=== PATIENT | male | born 1990 | race African-American/Black ===

== ENCOUNTER → 2018-06-17 | Day surgery (SDC) | payer OTHER ==
[~2018-06-17] VITALS: Ht 175.3 cm; Wt 72.6 kg
--- NOTE | 2018-06-17 07:34 | Operative Report ---
See Addendum Operative/Inv Procedure Report Surgery Date: 06/17/18 Name of Procedure: Right ACL reconstruction using hamstring autograft, partial lateral meniscectomy Pre-Operative Diagnosis: Right ACL tear, lateral meniscus tear Post-Operative Diagnosis: Right ACL tear, lateral meniscus tear Estimated Blood Loss: scant Surgeon/E Learning Designer: Obdulio Galaviz MD Anesthesia: laryngeal mask airway, block Complications: None Condition: Stable to PACU Operative Indication: This is a 27-year-old male who injured his right knee playing basketball. MRI showed an ACL tear. He has had recurrent instability. Risks and benefits of the procedure were discussed with the patient at length. Risks include but are not limited to nerve damage, muscle damage, infection, blood loss, blood clots, pulmonary embolus, and even . The patient agreed to the above risks and elected to proceed with surgery. Operative/Procedure Note Note: The patient was placed supine on the operating room table. A tourniquet was applied. The lower extremity prepped and draped in normal sterile fashion. A timeout was performed before the incision. The site marking was visualized before incision. After the leg was prepped and draped, an Esmarch was used to exsanguinate the extremity. The tourniquet was inflated. An incision was made medial and distal to the tibial tubercle. Soft tissue dissection was performed down to the sartorius fascia. The sartorius fascia was incised in line with the gracilis and semi-tendinosis tendons. The gracilis tendon was isolated and a vessel loop was placed deep to this. Adhesions were released with a scissor. A tendon stripper was then passed up and the gracilis was delivered from the wound. It was then amputated at its insertion point. The semi-tendinosis tendon was also removed in similar fashion. The hamstring tendons were then sized and prepared on the back table. Muscular tissue was debrided with a metal ruler. Fiber wire suture was then whipstitched at the end of the tendons. It was placed on the tensioner at 10 pounds of tension and a moist Ray-Nikia was then placed over the tendons to keep it from drying out. A standard inferolateral portal was established with an 11 blade. The camera was inserted. A medial portal was established with a spinal needle and an 11 blade. The diagnostic arthroscopy was then performed which showed the above findings. A shaver was then used to debride the ACL stump. A bur was then used to perform a notchplasty for visualization purposes. Next the bur was used to hugh the placement of the femoral tunnel in its anatomic position on the lateral femoral wall. A straight biter as well as a shaver was used to debride the lateral meniscus back to a stable rim of cartilage. Chondroplasty was also performed over the lateral femoral condyle. A drill guide was then used and the wire was then placed through the anatomic footprint of the ACL on the tibia. This was then overreamed with a #9.5 reamer. A shaver was then used to clear out the soft tissue from the tibial tunnel aperture. Through the medial portal a #9.5 acorn reamer was used to drill the femoral tunnel to 30 mm. An Endobutton reamer was then drilled through. The Beath pin was then drilled from the medial portal through the lateral aspect of the femur and a #2 ortho cord suture was then shuttled for graft passage. The suture was then grasped through the tibial tunnel and the suture was used to shuttle the graft and an Ultrabutton up into the femoral tunnel. The button was flipped. An x-ray was taken to ensure that the Endobutton was flush to the femoral cortex. The graft was then reduced. There was no graft impingement noted. A biosure sync device was then used. First the tibia was tapped. The 9 -10 sheath was then placed over a wire. The 9x25 mm screw was then placed while traction was pulled distally and a posterior drawer maneuver was applied. Excellent fixation was noted and the ezra exam was noted to be stable. The excess tendon and sutures were cut. The knee was then copiously irrigated. A 1/8 inch Hemovac drain was placed through the lateral portal. The sartorius fascia was closed with 0 Vicryl suture. The skin was closed with 2-0 Vicryl suture and a running subcuticular 3 -0 Prolene stitch. The portal sites were closed with 3-0 Prolene. A dry sterile dressing was applied. A brace was applied. The patient was awoken from anesthesia and transferred to PACU in stable condition. Findings: Complete ACL tear. PCL intact. Medial meniscus intact. Grade 2 chondral thinning over the medial femoral condyle. Lateral meniscus with a radial tear at the body. Grade 3 chondral flap over the lateral femoral condyle with a small area of grade 4 chondral changes in the far lateral aspect of the femoral condyle. No loose bodies noted. Patellofemoral joint articular cartilage intact.
== END ==
LOC: STS 01:43
DX: S83.31XA Tear of articular cartilage of right knee, current, initial encounter (principal); S83.281A Other tear of lateral meniscus, current injury, right knee, initial encounter; Y93.67 Activity, basketball
CPT/HCPCS: C1713; J0690; J1885; J2250; J2405